=== PATIENT | female | born 1940 | race Two or more races ===

== ENCOUNTER 2017-12-07 01:14 | Emergency (ER) | payer OTHER ==
[~2017-12-07] VITALS: Ht 157.5 cm; Wt 74.8 kg
[~2017-12-07 01:14] MED LIST: SYNTHROID50 MCG
[2017-12-07] MEDS ORDERED: CLONAZEPAM0.5 M1 (01:32)
[2017-12-07] MEDS ORDERED: DUI500 PO (04:53)
[2017-12-08] MEDS ORDERED: FOSAMAX70 MG (11:42)
[2017-12-08] MEDS ORDERED: VITAMIN D35000 UNI1 (11:43)
[2017-12-08] MEDS ORDERED: SERTRALINE HCL25 MG (11:43)
[2017-12-08] MEDS ORDERED: TRICOR48 MG (11:44)
[2017-12-08] MEDS ORDERED: DIVALPROEX SOD250 MG (11:44)
[2017-12-08] MEDS ORDERED: RISPERDAL0.5 MG (11:44)
[2017-12-08] MEDS ORDERED: CLONAZEPAM0.5 MG (11:45)
[2017-12-08] MEDS ORDERED: SYNTHROID75 MCG (11:46)
== END 2017-12-07 06:17 | disposition home or self-care (01) ==
LOC: ER 01:14
DX: T25.122A Burn of first degree of left foot, initial encounter (principal); T25.221A Burn of second degree of right foot, initial encounter; X11.8XXA Contact with other hot tap-water, initial encounter; Y93.89 Activity, other specified; Y92.018 Other place in single-family (private) house as the place of occurrence of the external cause; Y99.8 Other external cause status

== ENCOUNTER 2017-12-08 10:58 | Emergency (ER) | payer OTHER ==
[~2017-12-08] VITALS: Ht 157.5 cm; Wt 74.8 kg
[~2017-12-08 10:58] MED LIST changes: +CLONAZEPAM0.5 M1; +DUI500 PO
[2017-12-08] MEDS ORDERED: FOSAMAX70 MG (11:42)
[2017-12-08] MEDS ORDERED: VITAMIN D35000 UNI1 (11:43)
[2017-12-08] MEDS ORDERED: SERTRALINE HCL25 MG (11:43)
[2017-12-08] MEDS ORDERED: TRICOR48 MG (11:44)
[2017-12-08] MEDS ORDERED: RISPERDAL0.5 MG (11:44)
[2017-12-08] MEDS ORDERED: DIVALPROEX SOD250 MG (11:44)
[2017-12-08] MEDS ORDERED: CLONAZEPAM0.5 MG (11:45)
[2017-12-08] MEDS ORDERED: SYNTHROID75 MCG (11:46)
== END 2017-12-08 13:21 | disposition home or self-care (01) ==
LOC: ER 10:58
DX: S90.821A Blister (nonthermal), right foot, initial encounter (principal); X11.8XXA Contact with other hot tap-water, initial encounter; Y93.89 Activity, other specified; Y92.89 Other specified places as the place of occurrence of the external cause; Y99.8 Other external cause status

== ENCOUNTER → 2017-12-09 | Emergency (ER) | payer OTHER ==
[~2017-12-09] MED LIST changes: +CLONAZEPAM0.5 MG; +DIVALPROEX SOD250 MG; +FOSAMAX70 MG; +RISPERDAL0.5 MG; +SERTRALINE HCL25 MG; +SYNTHROID75 MCG; +TRICOR48 MG; +VITAMIN D35000 UNI1
== END | disposition left against medical advice (07) ==
LOC: ER 17:27
DX: Z53.20 Procedure and treatment not carried out because of patient's decision for unspecified reasons (principal)

== ENCOUNTER 2018-02-27 12:31 | Outpatient (CLI) | payer OTHER | END 2018-02-27 16:46 | disposition home or self-care (01) | LOC: SONOGRAMA 12:31 | DX: M12.511 Traumatic arthropathy, right shoulder (principal) ==

== ENCOUNTER → 2018-05-22 | Emergency (ER) | payer OTHER ==
[~2018-05-22] VITALS: Ht 157.5 cm; Wt 69.9 kg
== END | disposition left against medical advice (07) ==
LOC: ER 13:58
DX: Z53.20 Procedure and treatment not carried out because of patient's decision for unspecified reasons (principal)

== ENCOUNTER 2018-07-26 13:46 | Outpatient (CLI) | payer OTHER | END 2018-07-26 13:59 | disposition home or self-care (01) | LOC: RAD 501 13:46 | DX: M25.562 Pain in left knee (principal) ==

== ENCOUNTER 2018-09-20 11:25 | Outpatient (CLI) | payer OTHER | END 2018-09-20 11:34 | disposition home or self-care (01) | LOC: RAD 501 11:25 | DX: M25.561 Pain in right knee (principal); M25.562 Pain in left knee ==

== ENCOUNTER 2018-09-27 13:08 | Outpatient (CLI) | payer OTHER | END 2018-09-27 13:13 | disposition home or self-care (01) | LOC: RAD 501 13:08 | DX: R07.89 Other chest pain (principal) ==

== ENCOUNTER 2018-10-10 11:14 | Outpatient (CLI) | payer OTHER | END 2018-10-10 17:00 | disposition home or self-care (01) | LOC: MRI 11:14 | DX: M25.562 Pain in left knee (principal); M23.204 Derangement of unspecified medial meniscus due to old tear or injury, left knee | CPT/HCPCS: 73721 ==

== ENCOUNTER 2019-04-23 10:37 | Emergency (ER) | payer OTHER ==
[~2019-04-23] VITALS: Ht 157.5 cm; Wt 80.7 kg
[2019-04-23] MEDS ORDERED: SYNTHROID125 MCG (10:42)
== END 2019-04-23 12:48 | disposition home or self-care (01) ==
LOC: ER 10:37
DX: K21.9 Gastro-esophageal reflux disease without esophagitis (principal)

== ENCOUNTER 2019-08-24 10:05 | Emergency (ER) | payer OTHER ==
[~2019-08-24] VITALS: Ht 157.5 cm; Wt 76.2 kg
[~2019-08-24 10:05] MED LIST changes: +SYNTHROID125 MCG
== END 2019-08-24 12:01 | disposition home or self-care (01) ==
LOC: ER 10:05
DX: L50.8 Other urticaria (principal)

== ENCOUNTER → 2019-09-05 10:19 | Outpatient (CLI) | payer OTHER | END | disposition home or self-care (01) | LOC: LAB 10:19 | DX: D64.89 Other specified anemias (principal); I10 Essential (primary) hypertension; E11.9 Type 2 diabetes mellitus without complications; E78.00 Pure hypercholesterolemia, unspecified; N39.0 Urinary tract infection, site not specified; E03.8 Other specified hypothyroidism; Z12.31 Encounter for screening mammogram for malignant neoplasm of breast; R19.5 Other fecal abnormalities; E55.9 Vitamin D deficiency, unspecified ==

== ENCOUNTER 2019-09-07 13:25 | Outpatient (CLI) | payer OTHER | END 2019-09-07 13:30 | disposition home or self-care (01) | LOC: LAB 13:25 | DX: D64.89 Other specified anemias (principal); I10 Essential (primary) hypertension; E11.9 Type 2 diabetes mellitus without complications; E78.00 Pure hypercholesterolemia, unspecified; N39.0 Urinary tract infection, site not specified; E03.8 Other specified hypothyroidism; Z12.31 Encounter for screening mammogram for malignant neoplasm of breast; R19.5 Other fecal abnormalities; E55.9 Vitamin D deficiency, unspecified ==

== ENCOUNTER 2020-04-29 11:49 | Emergency (ER) | payer OTHER ==
[~2020-04-29] VITALS: Ht 157.5 cm; Wt 73.5 kg
== END 2020-04-29 14:43 | disposition home or self-care (01) ==
LOC: ER 11:49
DX: M54.5 Low back pain (principal); M25.552 Pain in left hip

== ENCOUNTER 2020-05-12 10:26 | Outpatient (CLI) | payer OTHER | END 2020-05-12 10:38 | disposition home or self-care (01) | LOC: MRI 10:26 | PROVIDERS: ATTEND Internal Medicine | DX: M54.5 Low back pain (principal); M25.552 Pain in left hip | CPT/HCPCS: 72148 ==

== ENCOUNTER 2020-05-14 11:28 | Outpatient (CLI) | payer OTHER | END 2020-05-14 11:36 | disposition home or self-care (01) | LOC: LAB 11:28 | PROVIDERS: ATTEND Internal Medicine | DX: R19.00 Intra-abdominal and pelvic swelling, mass and lump, unspecified site (principal) ==

== ENCOUNTER 2020-07-09 11:48 | Outpatient (CLI) | payer OTHER | END 2020-07-09 12:26 | disposition home or self-care (01) | LOC: RAD 11:48 | PROVIDERS: ATTEND Physical Medicine & Rehabilitation | DX: M17.0 Bilateral primary osteoarthritis of knee (principal); M25.511 Pain in right shoulder; M19.011 Primary osteoarthritis, right shoulder ==

== ENCOUNTER 2020-11-13 07:43 | Outpatient (CLI) | payer OTHER | END 2020-11-13 07:59 | disposition home or self-care (01) | LOC: MRI 07:43 | PROVIDERS: ATTEND Physical Medicine & Rehabilitation | DX: M54.2 Cervicalgia (principal); M54.12 Radiculopathy, cervical region | CPT/HCPCS: 72148 ==

== ENCOUNTER 2021-06-17 10:27 | Outpatient (CLI) | payer OTHER | END 2021-06-17 10:33 | disposition home or self-care (01) | LOC: NUCLEAR 10:27 | PROVIDERS: ATTEND Internal Medicine | DX: I70.213 Atherosclerosis of native arteries of extremities with intermittent claudication, bilateral legs (principal) ==

== ENCOUNTER 2021-06-18 10:01 | Outpatient (CLI) | payer OTHER | END 2021-06-18 10:11 | disposition home or self-care (01) | LOC: NUCLEAR 10:01 | PROVIDERS: ATTEND Internal Medicine | DX: I87.2 Venous insufficiency (chronic) (peripheral) (principal) ==

== ENCOUNTER 2021-10-15 13:14 | Outpatient (CLI) | payer OTHER | END 2021-10-15 13:19 | disposition home or self-care (01) | LOC: RAD 13:14 | PROVIDERS: ATTEND Internal Medicine | DX: M15.0 Primary generalized (osteo)arthritis (principal) ==

== ENCOUNTER 2022-03-11 10:42 | Outpatient (CLI) | payer OTHER | END 2022-03-11 10:44 | disposition home or self-care (01) | LOC: RAD 10:42 | PROVIDERS: ATTEND Orthopaedic Surgery | DX: M25.561 Pain in right knee (principal); M25.562 Pain in left knee ==

== ENCOUNTER 2022-03-25 08:16 | Outpatient (CLI) | payer OTHER | END 2022-03-25 08:21 | disposition home or self-care (01) | LOC: MRI 08:16 | PROVIDERS: ATTEND Internal Medicine | DX: M25.562 Pain in left knee (principal) | CPT/HCPCS: 73721 ==